=== PATIENT | female | born 1975 | race Caucasian/White ===

== ENCOUNTER 2019-06-28 10:30 | Emergency (ER) | payer OTHER ==
[~2019-06-28] VITALS: Ht 154.9 cm; Wt 68.9 kg
[~2019-06-28 10:30] MED LIST: CIPRO100 MG PO; CLORAZEPATE D3.75 MG; URETRON D/S TAB1 TAB PO
== END 2019-06-28 13:18 | disposition home or self-care (01) ==
LOC: ER 10:30
DX: R51 Headache (principal)